=== PATIENT | female | born 1995 | race Caucasian/White ===

== ENCOUNTER → 2017-11-20 09:01 | Outpatient (CLI) | payer OTHER, SELFPAY ==
[2017-11-20 10:33] LABS: Absolute Lymphocyte Count 1.56 X10^3/ul (0.83-4.51); Absolute Neutrophil Count 3.6 X10^3/uL (2.0-7.7); Basophil# 0.02 X10^3/uL; Basophil% 0.3 % (0-1); Eosinophil# 0.07 X10^3/uL; Eosinophils% 1.2 % (0-5); Hematocrit 38.6 % (37-47); Hemoglobin 12.3 g/dl (12.0-15.0); Lymphocyte # 1.56 X10^3/ul (4.0); Lymphocyte % 27.3 % (19-41); Mean Corp Hgb Conc 31.9 g/gl (32-36); Mean Corpuscular Hgb 27.5 pg (27.0-32.0); Mean Corpuscular Volume 86.2 fL (81-99); Mean Platelet Vol. 11.2 fl (6.2-12.0); Monocyte# 0.47 X10^3/uL; Monocyte% 8.2 % (0-10); Platelet Count 195 K/mm3 (150-450); RBC Distribution Width CV 13.4 % (11.6-14.6); RBC Distribution Width SD 42.2 fl (35.1-43.9); Red Blood Count 4.48 M/mm3 (4.2-5.4); White Blood Count 5.7 K/mm3 (4.4-11.0)
[2017-11-20 10:40] LABS: POSITIVE COUNT NO; POSITIVE DIFFERENTIAL NO; POSITIVE MORPHOLOGY NO
[2017-11-20 10:53] LABS: Glucose Challenge Gest 1H 50g 115 mg/dL (70-140)
[2017-11-20 11:48] LABS: HIV - WCH Non-Reactive (Nonreactive); Rubella IgG 295.6 IU/mL
[2017-11-20 16:13] LABS: Chlamydia Trachomatis by PCR Negative (Negative); Neisserai gonorrhoeae by PCR Negative (Negative); Probe Check PASS; Sample Adequacy Control PASS; Specimen Processing Control PASS
[2017-11-21 09:23] LABS: HEPATITIS B SURFACE AG Negative (Negative)
[2017-11-22 01:13] LABS: Rapid Plasmin Reagin (RPR) NONREACTIVE (NONREACTIVE)
== END ==
PROVIDERS: Visit Provider Obstetrics & Gynecology
DX: O09.91 Supervision of high risk pregnancy, unspecified, first trimester (principal); Z3A.00 Weeks of gestation of pregnancy not specified
CPT/HCPCS: 36415; 82950; 85025; 86592; 86703; 86762; 86850; 86900; 87086; 87088; 87340; 87491; 87591

== ENCOUNTER → 2017-11-28 16:11 | Outpatient (CLI) | payer OTHER, SELFPAY ==
--- NOTE | 2017-11-28 16:12 | US_ITS ---
STUDY: FIRST TRIMESTER OBSTETRICAL ULTRASOUND REASON FOR EXAM: Female, 22 years old. Gestational size LMP: September 23, 2017 TECHNIQUE: Transvaginal PRIOR ULTRASOUND: None. FINDINGS: There is visualization of a single gestational sac in a normal intrauterine position. The mean sac diameter (MSD) measures 2.32 cm, indicating an estimated gestational age (EGA) of 7 weeks, 3 days. The gestational sac shape is within normal limits. There is a 10 x 4 mm hypoechoic area adjacent to the gestational sac possibly related to focal subchorionic blood. There is a visualized yolk sac. The yolk sac measures 3.8 mm. The placenta is non-visualized. There is visualization of a live embryo. The crown-rump length (CRL) measures 1.46 cm, indicating an estimated gestational age (EGA) of 7 weeks, 6 days. There is demonstrated cardiac activity with a heart rate of 170 bpm. The estimated gestation age (EGA) by LMP is 9 weeks, 3 days. The estimated date of delivery (DAVID) by LMP is June 25, 2018. The estimated gestation age (EGA) by US is 7 weeks, 5 days. The estimated date of delivery (DAVID) by US is July 12, 2018. The uterus measures 9.2 x 5.9 x 4.6 cm. There is no demonstrated uterine fibroid. The cervix is closed. The right ovary measures 3.0 x 2.2 x 2.0 cm. There is no right ovarian cyst. There is no visualized right adnexal mass or complex lesion. The left ovary measures 3.1 x 2.4 x 1.7 cm. There is a 1.8 x 1.4 x 1.2 cm left ovarian heterogeneous complex cystic nodule. There is no fluid in the cul de sac. US/Init OB < 14Wks US IMPRESSION: Live intrauterine at 7 weeks 5 days gestational age. Probable trace subchorionic blood. Complex left adnexal nodule. Electronically Signed: Ruddy Rice DO at 21:47 EDT Tel [phone], Service support ,
== END ==
PROVIDERS: Family Provider Family Medicine; PCP Family Medicine; Visit Provider Obstetrics & Gynecology
DX: O09.91 Supervision of high risk pregnancy, unspecified, first trimester (principal); Z3A.00 Weeks of gestation of pregnancy not specified
CPT/HCPCS: 76801

== ENCOUNTER → 2017-12-18 08:00 | Outpatient (CLI) | payer OTHER, SELFPAY ==
--- NOTE | 2017-12-18 08:00 | DT_ITS ---
This patient was seen during an EMR downtime December 16, 2017 - December 23, 2017. This patient may have a combination of paper and electronic documentation or all paper documentation. All documentation is viewable within the e-chart portion of [facility] for each patient visit.
== END ==
PROVIDERS: Family Provider Family Medicine; PCP Family Medicine; Visit Provider Nurse Practitioner Women's Health
DX: M54.9 Dorsalgia, unspecified (principal)
CPT/HCPCS: 87077; 87086; 87088; 87186

== ENCOUNTER → 2018-02-19 15:17 | Outpatient (CLI) | payer OTHER, SELFPAY ==
--- NOTE | 2018-02-19 15:19 | US_ITS ---
STUDY: SECOND AND THIRD TRIMESTER OBSTETRICAL ULTRASOUND REASON FOR EXAM: Female, 22 years old. anatomy screen LMP: TECHNIQUE: Transabdominal PRIOR ULTRASOUND: November 28, 2017 FINDINGS: There is a single intrauterine fetus. The fetus is in a cephalic presentation. There is demonstrated cardiac activity with a heart rate of 153 bpm. There is a normal amniotic fluid volume. The largest amniotic fluid pocket measures 5.9 x 7.5 cm. The amniotic fluid index (LAYO) normal. The placenta is anterior There are Grade 0 placental changes. The cervix measures 3.8 in length. The bilateral adnexal regions are normal. BIOMETRY: BPD: 4.7 cm: 20 weeks, 3 days HC: 17.7 cm: 20 weeks, 2 days AC: 15.0 cm: 20 weeks, 2 days FL: 3.3 cm: 20 weeks, 1 days CI: 0.81 FL/BPD: 0.69 FL/HC: FL/AC: 0.22 HC/AC: 1.18 age by current US: 20 weeks, 2 days. DAVID by current US: 07/12/2018. Estimated weight: 339 grams, +/- 50 grams, 80 %. . Age by LMP: 19 weeks, 4 days. DAVID by LMP: 07/07/2018. ANATOMY: Gender: Cranium: Normal lateral ventricles. Normal choroid plexus. Normal cerebellum. Normal cisterna magna. Normal face, nose and lips. Chest: Normal 4-chamber heart. Abdomen/Pelvis: Normal diaphragm. Normal stomach. Normal abdominal wall. Normal cord insertion. Normal 3 vessel cord. Normal kidneys. Normal bladder. Spine: Normal cervical spine. Normal thoracic spine. Normal lumbar spine. Normal sacrum. Extremities: Normal bilateral upper extremities. Normal bilateral lower extremities. IMPRESSION: There has been normal growth of the since the last study November 28, 2017. The fetus is currently in cephalic presentation and longitudinal lie with composite measurements averaging artifact to be equivalent to 20 weeks 2 days +/- 5 days with an expected date of delivery of 07/12/2018. By the LMP the gestational age is 19 weeks 4 days and the expected date of delivery is 07/07/2018 Electronically Signed: Harrison Carrasco, at 7:48 EDT Tel , Service support , US/OB Anatomy Scan
== END ==
PROVIDERS: Family Provider Family Medicine; PCP Family Medicine; Visit Provider Obstetrics & Gynecology
DX: O09.91 Supervision of high risk pregnancy, unspecified, first trimester (principal); Z3A.00 Weeks of gestation of pregnancy not specified
CPT/HCPCS: 76805

== ENCOUNTER → 2018-03-12 09:43 | Outpatient (CLI) | payer OTHER, SELFPAY | PROVIDERS: Family Provider Family Medicine; PCP Family Medicine; Visit Provider Obstetrics & Gynecology | DX: M25.472 Effusion, left ankle (principal) | CPT/HCPCS: 93971 ==

== ENCOUNTER → 2018-04-24 16:32 | Outpatient (CLI) | payer OTHER, SELFPAY ==
[2018-04-24 17:13] LABS: Absolute Lymphocyte Count 1.95 X10^3/ul (0.83-4.51); Absolute Neutrophil Count 7.7 X10^3/uL (2.0-7.7); Basophil# 0.01 X10^3/uL; Basophil% 0.1 % (0-1); Eosinophils% 0.9 % (0-5); Hematocrit 35.4 % (37-47); Hemoglobin 11.7 g/dl (12.0-15.0); Lymphocyte # 1.95 X10^3/ul (4.0); Lymphocyte % 18.4 % (19-41); Mean Corp Hgb Conc 33.1 g/gl (32-36); Mean Corpuscular Volume 87.8 fL (81-99); Mean Platelet Vol. 10.9 fl (6.2-12.0); Monocyte% 7.5 % (0-10); Neutrophil % 72.6 % (47-70); Platelet Count 159 K/mm3 (150-450); RBC Distribution Width CV 13.1 % (11.6-14.6); Red Blood Count 4.03 M/mm3 (4.2-5.4); White Blood Count 10.6 K/mm3 (4.4-11.0)
[2018-04-24 17:48] LABS: Glucose Challenge Gest 1H 50g 140 mg/dL (70-140)
[2018-04-24 17:50] LABS: POSITIVE COUNT NO; POSITIVE DIFFERENTIAL NO; POSITIVE MORPHOLOGY NO
== END ==
PROVIDERS: Family Provider Family Medicine; PCP Family Medicine; Referring Provider Obstetrics & Gynecology; Visit Provider Obstetrics & Gynecology
DX: O09.91 Supervision of high risk pregnancy, unspecified, first trimester (principal); Z3A.00 Weeks of gestation of pregnancy not specified
CPT/HCPCS: 36415; 82950; 85025

== ENCOUNTER → 2018-05-16 06:54 | Outpatient (CLI) | payer OTHER, SELFPAY ==
[2018-05-16 09:19] LABS: Glucose GTT-Gestational 1 Hr 172 mg/dL (<190)
[2018-05-16 09:24] LABS: Glucose GTT-Gestation. Fasting 86 mg/dL (<105)
[2018-05-16 09:45] LABS: Glucose GTT-Gestational 2 Hr 163 mg/dL (<165)
[2018-05-16 11:46] LABS: Glucose GTT-Gestational 3 Hr 84 L (<145)
== END ==
PROVIDERS: Family Provider Family Medicine; PCP Family Medicine; Referring Provider Obstetrics & Gynecology; Visit Provider Obstetrics & Gynecology
DX: O99.810 Abnormal glucose complicating pregnancy (principal); Z3A.00 Weeks of gestation of pregnancy not specified
CPT/HCPCS: 36415; 82951; 82952

== ENCOUNTER 2018-05-22 15:50 | Outpatient (CLI) | payer OTHER, SELFPAY ==
[2018-05-22 16:09] VITALS: BMI 44.7
--- NOTE | 2018-05-26 21:30 | OB.TRI.NOTE ---
- Problem List (1) Obesity affecting Status: Acute (2) Supervision of high risk in first trimester Status: Acute Comment: PRR DAVID 06/30/18 boyfriend Carl History of Present Illness Date of Service: 05/22/18 Was patient seen by the physician?: No Reason For Visit: NST History of Present Illness: nst for obesity Allergies No Known Allergies Allergy (Verified 05/22/18 16:10) NST - FHR Rate Baby A Baseline: 140 Variability:: Moderate Accelerations:: 15 x 15 Decelerations:: None NST Reactive:: Yes FHR Category:: Category I Uterine Activity:: no regular Impression/Plan obesity and high risk - weekly nsts, reactive and reassuring
== END 2018-05-22 16:45 | disposition home or self-care (01) ==
LOC: WPOUT 16:05 → WP 16:06
PROVIDERS: Referring Provider Obstetrics & Gynecology; Visit Provider Obstetrics & Gynecology
DX: O09.891 Supervision of other high risk pregnancies, first trimester (principal); O99.211 Obesity complicating pregnancy, first trimester; Z3A.00 Weeks of gestation of pregnancy not specified

== ENCOUNTER 2018-05-27 15:50 | Outpatient (CLI) | payer OTHER, SELFPAY ==
[2018-05-27 16:14] VITALS: BMI 45.2
--- NOTE | 2018-05-28 19:03 | OB.TRI.NOTE ---
- Problem List (1) Obesity affecting Status: Acute Qualifiers: (2) Supervision of high risk in first trimester Status: Acute Comment: PRR DAVID 06/30/18 boyfriend Carl History of Present Illness Date of Service: 05/27/18 Was patient seen by the physician?: No Reason For Visit: NST History of Present Illness: obesity Allergies No Known Allergies Allergy (Verified 05/27/18 16:04) NST - FHR Rate Baby A Baseline: 140 Variability:: Moderate Accelerations:: 15 x 15 Decelerations:: None NST Reactive:: Yes FHR Category:: Category I Uterine Activity:: no regular Impression/Plan obesity- reacitve nst continue weekly nsts and q 4 week growth us
== END 2018-05-27 16:40 | disposition home or self-care (01) ==
LOC: WPOUT 15:53 → WP 15:54
PROVIDERS: Referring Provider Obstetrics & Gynecology; Visit Provider Obstetrics & Gynecology
DX: O99.210 Obesity complicating pregnancy, unspecified trimester (principal); O09.90 Supervision of high risk pregnancy, unspecified, unspecified trimester; Z3A.00 Weeks of gestation of pregnancy not specified
CPT/HCPCS: 59025; 59050; 99218; G0378

== ENCOUNTER 2018-06-19 15:40 | Outpatient (CLI) | payer OTHER, SELFPAY ==
[2018-06-19 15:28] VITALS: BMI 45.6
[2018-06-19 16:01] VITALS: BMI 47.0
--- NOTE | 2018-06-19 20:26 | OB.TRI.NOTE ---
- Problem List (1) Obesity affecting Status: Acute Qualifiers: Comment: growth us after 32 weeks and weekly nsts 32 weeks on (2) Supervision of high risk in first trimester Status: Acute Comment: PRR DAVID 06/30/18 boyfriend Carl History of Present Illness Date of Service: 06/19/18 Was patient seen by the physician?: No Reason For Visit: NST History of Present Illness: obesity in weekly nst Allergies No Known Allergies Allergy (Verified 06/19/18 15:28) NST - FHR Rate Baby A Baseline: 130 Variability:: Moderate Accelerations:: 15 x 15 Decelerations:: None NST Reactive:: Yes FHR Category:: Category I Uterine Activity:: no regular Impression/Plan 23 yo obesity weekly nst fu weekly reactive today and reassuring
== END 2018-06-19 17:20 | disposition home or self-care (01) ==
LOC: WPOUT 15:44 → WP 15:45
PROVIDERS: Referring Provider Obstetrics & Gynecology; Visit Provider Obstetrics & Gynecology
DX: O99.213 Obesity complicating pregnancy, third trimester (principal); E66.9 Obesity, unspecified; Z3A.32 32 weeks gestation of pregnancy
CPT/HCPCS: 59025; 59050; 99218; G0378

== ENCOUNTER 2018-07-12 20:03 | Inpatient (IN) | payer OTHER, SELFPAY ==
[2018-07-11 15:33] VITALS: BMI 47.0
[2018-07-12 19:48] LABS: ROM Internal Control Test YES-OK TO RESULT pt. (Internal QC)
[2018-07-12 19:49] LABS: ROM Patient Test POSITIVE (Negative)
[2018-07-12] MEDS: Lactated Ringers 1,000 ML 50 ML IV ×2 (20:30→22:00)
[2018-07-12 20:41] VITALS: BMI 47.5
[2018-07-12 20:48] LABS: Hemoglobin 13.5 g/dl (12.0-15.0); Mean Corp Hgb Conc 33.8 g/gl (32-36); Mean Corpuscular Hgb 28.7 pg (27.0-32.0); Mean Corpuscular Volume 85.1 fL (81-99); Mean Platelet Vol. 10.8 fl (6.2-12.0); Platelet Count 156 K/mm3 (150-450); RBC Distribution Width CV 13.9 % (11.6-14.6); RBC Distribution Width SD 43.1 fl (35.1-43.9); Scan Indicated on CBC? Y/N NO; White Blood Count 10.2 K/mm3 (4.4-11.0)
[2018-07-12] MEDS: fentaNYL-bupivacaine (epidural) 100 ML BAG EPIDURAL (22:21)
--- NOTE | 2018-07-12 22:44 | PCM.HP.OB ---
- Problem List (1) SROM (spontaneous rupture of membranes) Status: Acute (2) Obesity affecting Status: Acute Qualifiers: Comment: growth us after 32 weeks and weekly nsts 32 weeks on (3) Abnormal glucose affecting Status: Acute Comment: normal 3 hour gtt (4) GBS (group B streptococcus) UTI complicating Status: Acute Qualifiers: Comment: treated, plan PCN in labor (5) Supervision of high risk in first trimester Status: Acute Comment: PRR DAVID 06/30/18 boyfriend Carl History Date of Admission: 07/12/18 Final DAVID: 07/12/18 Gestational age: 40 Weeks and 0 Days History of this : This is a 23 year-old, at 40 weeks gestational age presents IAL. she has had an uncomplicated . She co clear LOF this evening and then ctx started that were very painful. she denies any vb and admits good fm. Allergies No Known Allergies Allergy (Verified 07/11/18 15:33) Home Medications: Home Medications Vits [Prenatabs FA] 1 tab PO DAILY 06/19/18 Smoking Status: Never smoker Alcohol: None Number of Fetus(es): 1 Heart Tracin moderate variability reactive no decels Cat I TOCO Analysis: q2-3 History Past Pregnancies: Past Pregnancies Delivery Date Name GA/Weeks Outcome Route Weight Gender Labor Length Anesthesia Delivery Location Provider FOB Labs: Mom's Labs & Results 07/12/18 07/12/18 07/12/18 19:30 20:30 20:30 WBC 10.2 RBC 4.70 Hgb 13.5 Hct 40.0 MCV 85.1 MCH 28.7 MCHC 33.8 RDW 13.9 RDW Differential 43.1 Plt Count 156 MPV 10.8 Vag Amniotic Fld Detect POSITIVE H Blood Type A POSITIVE Antibody Screen NEGATIVE Course Did the patient receive Yes care? Labs Blood Type: A RH: POSITIVE RPR/VDRL/Syphilis Nonreactive Rubella status Immune HbSAg Negative Date Done: 11/20/17 Chlamydia Negative Gonorrhea Negative HIV/AIDS Non-Reactive Group B Strep: Positive Current Obstetrical History Gestational Diabetes No Incompetent Cervix No Infertility No IUGR No Macrosomia No Hypertension/Pre-eclampsia No Placenta Previa/Abruption No PTL/PROM No Uterine anomaly No Oligohydramnios No Polyhydramnios No Multiple gestation No Past Medical History Asthma No Diabetes No Hypertension No Heart disease No Mitral valve prolapse No Neurologic/Seizure disorder/ No Migraines Kidney disease No Liver disease No Varicosities No Clotting disorders/Hx of DVT No Thyroid Dysfunction No Other medical diseases No Psychiatric disorders No Major trauma No Abnormal PAP smear No Sleep apnea No Mammogram in the last 2 years No Social History Marital Status: SINGLE Alleged father blake hector Hx Smoking No Smoking Status Never smoker Expected Infant Delivery Method: Spontaneous Vaginal Describe any other labor & delivery plans:: Specific Issue/Plans. flu vaccine: declined. minichart given: yes. tdap vaccine: given. rhogam: NA. LARC form signed: declines. labor support person: Carl. pain management: epidural. cut cord/dad catch: maybe. : yes. PP control planned: considering mirena IUD. special requests: [] Review of Systems Constitutional: Denies: Fever, Malaise Eyes: Denies: Blurred vision, Vision Change HEENT: Denies: Head Aches, Visual Changes Cardiovascular: Denies: Chest Pain, Palpitations Respiratory: Denies: Cough, Shortness of Breath, Wheezing Gastrointestinal: Reports: Abdominal Pain. Denies: Diarrhea, Nausea, Vomiting Genitourinary: Denies: Dysuria, Hematuria Gynecological: Reports: Vaginal discharge Musculoskeletal: Denies: Joint Pain, Muscle pain Skin: Denies: Lesions, Rash Neurological: Denies: Blurred vision, Focal weakness, Headaches Psychiatric: Denies: Anxiety, Depression Endocrine: Denies: Heat/ Cold Intolerance Hematologic/ Lymphatic: Denies: Easy Bruising, Easy Bleeding Physical Exam General: Alert, Cooperative, No apparent distress HEENT: Atraumatic, Normocephalic. Negative for: Thyromegaly, Lymphadenopathy Cardiovascular: Regular rate Lungs: Normal air movement Abdomen: Soft, Non Tender, Gravid Neurological: Deep Tendon Reflexes 2+/4 and Symmetrical, Neuro grossly intact. Negative for: Clonus INTERVENTIONAL NURSE: Normal external genitalia. Negative for: Vulvar lesions Estimated gestational size: Appropriate for gestational size Presentation: Cephalic Cervix Dilation (cm): 5 Station: -1 Effacement (%): 60 Assessment/Plan All Active Problems (Last Reviewed 07/11/18 @ 15:33 by Lucie Gross) SROM (spontaneous rupture of membranes) (Acute) Obesity affecting (Acute) Abnormal glucose affecting (Acute) GBS (group B streptococcus) UTI complicating (Acute) Supervision of high risk in first trimester (Acute) BMI 40.0-44.9, adult (Resolved) This is a 23 year-old, , at 40 weeks gestational age presents IAL Patient presents IAL, plan expectant management for , pitocin PRN. Pain management: plans epidural. GBS positive plan IV PCN. Management of any complications: none I have reviewed the [facility] and made any clinically relevant updates.
[2018-07-12] MEDS: Ondansetron 4 MG/2 ML Vial IV (23:22)
[2018-07-13] VITALS (23 sets, daily range): BP systolic 128–156; BP diastolic 67–93; PULSE 93–146; RESP 16–18; TEMP 36.3–37.2; O2SAT 92–100
--- NOTE | 2018-07-13 00:55 | PCM.OB.VAG ---
- Problem List (1) SROM (spontaneous rupture of membranes) Status: Acute (2) Obesity affecting Status: Acute Qualifiers: Comment: growth us after 32 weeks and weekly nsts 32 weeks on (3) Abnormal glucose affecting Status: Acute Comment: normal 3 hour gtt (4) GBS (group B streptococcus) UTI complicating Status: Acute Qualifiers: Comment: treated, plan PCN in labor (5) Supervision of high risk in first trimester Status: Acute Comment: PRR DAVID 06/30/18 boyfriend Carl Vaginal Delivery Maternal Presentation: Active Labor Amniotic Membrane Rupture Type: Spontaneous at home Amniotic Fluid Description: Clear Final DAVID: 07/12/18 Gestational age: 40 Weeks and 1 Days Surgery/ Procedure Performed: Spontaneous Vaginal Delivery Type of Anesthesia: Epidural Placental Delivery Description: Spontaneous Placenta Disposition: [facility] Cord Vessel Description: 3 Vessels Infant A gender: Male Medications given after delivery: IV Pitocin
[2018-07-13] MEDS: fentaNYL-bupivacaine (epidural) 100 ML BAG EPIDURAL (01:30)
[2018-07-13] MEDS: Acetaminophen 325 MG Tablet PO (02:46)
[2018-07-13] MEDS: Lactated Ringers 1,000 ML 50 ML IV (02:46)
[2018-07-13] MEDS: Oxytocin 30 units/NS 500 ml 30 UNITS/500 ML IV.SOLN 334 UNITS IV (05:50)
[2018-07-13] MEDS: Oxytocin 30 units/NS 500 ml 30 UNITS/500 ML IV.SOLN 167 UNITS IV (06:30)
--- NOTE | 2018-07-13 06:31 | PCM.PN.BLA ---
Progress Note patient began pushing and initially made significant progress, and then had poor maternal pushing effort due to inadequate epidural which was redosed twice. she continued pushing and then developed a fever that was persistent and there was tachycardia so ampicillin and gentamicin were started. she continued pushing and after over 4 hours of pushing it was discussed with the patient choosing either a vasuum assisted delivery or proceeding with a primary . the infants head was in the +3 station and the maternal pelvis was initially felt to be fairly adequate, so after discussing the risks the patient requested attempted vacuum.double setup will be done in case of necessary for delivery.
--- NOTE | 2018-07-13 06:35 | PN_ITS ---
Progress Note patient began pushing and initially made significant progress, and then had poor maternal pushing effort due to inadequate epidural which was redosed twice. she continued pushing and then developed a fever that was persistent and there was tachycardia so ampicillin and gentamicin were started. she continued pushing and after over 4 hours of pushing it was discussed with the patient choosing either a vasuum assisted delivery or proceeding with a primary . the infants head was in the +3 station and the maternal pelvis was in itially felt to be fairly adequate, so after discussing the risks the patient requested attempted vacuum.double setup will be done in case of necessary for delivery.
--- NOTE | 2018-07-13 06:35 | PCM.OPRPT ---
Problem List (1) SROM (spontaneous rupture of membranes) Status: Acute (2) Obesity affecting Status: Acute Qualifiers: Comment: growth us after 32 weeks and weekly nsts 32 weeks on (3) Abnormal glucose affecting Status: Acute Comment: normal 3 hour gtt (4) GBS (group B streptococcus) UTI complicating Status: Acute Qualifiers: Comment: treated, plan PCN in labor (5) Supervision of high risk in first trimester Status: Acute Comment: PRR DAVID 06/30/18 boyfrienmichelle Henry (6) Arrest of descent, delivered, current hospitalization Status: Acute (7) Failed vacuum extraction delivery Status: Acute (8) Cephalopelvic disproportion Status: Acute Report of Operation Date of Procedure: 07/13/18 Pre-Operative Diagnosis: Arrest of descent, cephalopelvic disproportion,. Suspected triple I Post-Operative Diagnosis: Same Surgery/Procedure Performed:: Primary low transverse for failed vacuum extraction Description of Surgical Findings:: in occiput posterior position normal uterus tubes and ovaries parliamentary counsel: Randal Olson Type of Anesthesia:: Epidural, General, Spinal Special Medications: Ampicillin gentamicin and clindamycin Specimen's removed: Infant Drains: Alvares Estimated Blood Loss (mL): 800 Fluids Replaced: cryStyloid Description of Procedure: Patient presented in active labor and after 5 hours patient was complete and she began pushing and pushed for over 4-1/2 hours. Multiple re-doses and it was felt that there was some maternal pushing effort that was poor and the pelvis was initially felt to be fairly adequate so the patient was counseled regarding risks and benefits of attempted vacuum extraction prior to . Patient requested proceeding with vacuum extraction first. Vacuum was applied and the +3 station with the infant in the LOP presentation and a pull with 1 contraction was made in some descent was noted however progressive poles with the next 2 contractions resulted in 2 pop offs and the decision was made to proceed with primary for suspected CPD arrested descent . spinal anesthesia was placed and then once patient was laying down she reported difficulty breathing and it was decided for her to undergo general anesthesia due to concern for combination spinal epidural side effects. Patient was prepped and draped in the normal sterile fashion. Pfannenstiel skin incision was made with the scalpel and carried through to the underlying layer of fascia with the scalpel. Fascia was nicked in the midline and the incision extended laterally. The peritoneum was entered digitally. The incision was stretched and a low transverse uterine incision was made with the scalpel. The 's head was delivered atraumatically followed by the anterior and posterior shoulders without complication the rest of the delivered. The cord was clamped and cut and the infant was handed off to awaiting nurse. The placenta was delivered spontaneously immediately following and was noted to be intact and have a three-vessel cord. The uterus was exteriorized cleared of all clots and debris, and the incision was closed in a double layer closure using #1 Monocryl. The uterus was returned to the maternal abdomen and gutters were cleared of all clots and debris. The ovaries and fallopian tubes were noted to be within normal limits. The peritoneum was closed with 3-0 Monocryl in a running fashion. Fascia was closed with 0 PDS in a running fashion. the skin was closed with 3-0 Monocryl in a subcuticular fashion. Mepilex dressing were applied without complication. Patient was taken to recovery in stable condition. Grafts/Implants Used: none - Complications none - Admit VTE Documentation VTE Present on Admission: No VTE Mechan Device Prophylaxis: SCD's VTE Pharm Prophylaxis ordered?: No
--- NOTE | 2018-07-13 06:42 | OP.PCM_ITS ---
Problem List (1) SROM (spontaneous rupture of membranes) Status: Acute (2) Obesity affecting Status: Acute Qualifiers: Comment: growth us after 32 weeks and weekly nsts 32 weeks on (3) Abnormal glucose affecting Status: Acute Comment: normal 3 hour gtt (4) GBS (group B streptococcus) UTI complicating Status: Acute Qualifiers: Comment: treated, plan PCN in labor (5) Supervision of high risk in first trimester Status: Acute Comment: PRR DAVID 06/30/18 boyfrienmichelle Henry (6) Arrest of descent, delivered, current hospitalization Status: Acute (7) Failed vacuum extraction delivery Status: Acute (8) Cephalopelvic disproportion Status: Acute Report of Operation Date of Procedure: 07/13/18 Pre-Operative Diagnosis: Arrest of descent, cephalopelvic disproportion,. Suspected triple I Post-Operative Diagnosis: Same Surgery/Procedure Performed:: Primary low transverse for failed vacuum extraction Description of Surgical Findings:: in occiput posterior position normal uterus tubes and ovaries farm equipment service technician: Randal Olson Type of Anesthesia:: Epidural, General, Spinal Special Medications: Ampicillin gentamicin and clindamycin Specimen's removed: Infant Drains: Alvares Estimated Blood Loss (mL): 800 Fluids Replaced: cryStyloid Description of Procedure: Patient presented in active labor and after 5 hours patient was complete and she began pushing and pushed for over 4-1/2 hours. Multiple re-doses and it was felt that there was some maternal pushing effort that was poor and the pelvis was initially felt to be fairly adequate so the patient was counseled regarding risks and benefits of attempted vacuum extraction prior to . Patient requested proceeding with vacuum extraction first. Vacuum was applied and the +3 station with the infant in the LOP presentation and a pull with 1 contraction was made in some descent was noted however progressive poles with the next 2 contractions resulted in 2 pop offs and the decision was made to proceed with primary for suspected CPD arrested descent . spinal anesthesia was placed and then once patient was laying down she reported difficulty breathing a nd it was decided for her to undergo general anesthesia due to concern for combination spinal epidural side effects. Patient was prepped and draped in the normal sterile fashion. Pfannenstiel skin incision was made with the scalpel and carried through to the underlying layer of fascia with the scalpel. Fascia was nicked in the midline and the incision extended laterally. The peritoneum was entered digitally. The incision was stretched and a low transverse uterine incision was made with the scalpel. The 's head was delivered atraumatically followed by the anterior and posterior shoulders without complication the rest of the delivered. The cord was clamped and cut and the infant was handed off to awaiting nurse. The placenta was delivered spontaneously immediately following and was noted to be intact and have a three- vessel cord. The uterus was exteriorized cleared of all clots and debris, and the incision was closed in a double layer closure using #1 Monocryl. The uterus was returned to the maternal abdomen and gutters were cleared of all clots and debris. The ovaries and fallopian tubes were noted to be within normal limits. The peritoneum was closed with 3-0 Monocryl in a running fashion. Fascia was closed with 0 PDS in a running fashion. the skin was closed with 3-0 Monocryl in a subcuticular fashion. Mepilex dressing were applied without complication. Patient was taken to recovery in stable condition. Grafts/Implants Used: none - Complications none - Admit VTE Documentation VTE Present on Admission: No VTE Mechan Device Prophylaxis: SCD's VTE Pharm Prophylaxis ordered?: No
[2018-07-13] MEDS: Lactated Ringers 1,000 ML 150 ML IV (06:44)
--- NOTE | 2018-07-13 09:23 | PLAC_PTH ---
PATIENT: RAUL CUNNINGHAM LOC: [facility] U#:[id number] AGE/SX: 23/F ROOM: WP008 RE07/12/[address]: Dr. Charisma Juarez MD : 1995 BED: 1 DIS: 07/15/2018 SPEC #: [id number] RECD: 07/13/18 10:17 STATUS: FANTA RESuman #: [id number] TRISH: 07/13/18 09:[address]: Charisma Juarez DEPT: SURGICAL PATHOLOGY RECD BY: Nanda Serrano ENTERED: 07/14/18 14:44 SP TYPE: PLACENTA OTHR DR: Dr. Valerio Rubi MD Tissues: Placenta, NOS Procedures: Surgery Specimen Level V HEADER OPERATION: section PRE-OP DIAGNOSIS: 40 2/7 weeks, maternal fever and tachycardia TISSUE SUBMITTED: Placenta MICROSCOPIC DIAGNOSIS Placenta: Placental disc - third trimester placenta (578 gm). - Focal acute vasculitis of subamniotic blood vessels. - Focal area of peripheral infarction and calcification (2 cm in greatest dimension). - Focal increased perivillous and intervillous fibrin deposition. Membranes - acute chorioamnionitis. Umbilical cord - three blood vessels and no pathologic diagnosis. SJ:mauro 07/17/18 MICROSCOPIC DESCRIPTION Slides are reviewed. GROSS DESCRIPTION SPECIMEN: PLACENTA / CLINICAL INFORMATION: A. Weight: 4.26 kg B. Gestational Age: 40 weeks C. Sex: Male PLACENTAL WEIGHT (POST FIXATION): 578 gm PLACENTAL DIMENSIONS: 17 x 19 x 3 cm PLACENTAL SHAPE: Usual ovoid PLACENTAL WEIGHT FOR GESTATIONAL AGE: Within 10-99th percentile MEMBRANES - Present A. Insertion: Marginal B. Site of rupture from edge: The membranes are disrupted and distance of rupture cannot be assessed. C. Color of membrane: Isabel-mesa D. Abnormalities: None UMBILICAL CORD - Present A. Color: Isabel-mesa B. Insertion: Central C. Length: 50 cm D. Diameter: 1.4 cm E. Number of vessels: Three F. Abnormalities: Focal increased spiraling is noted. PLACENTAL DISC - Present A. Color of surface: Isabel-mesa B. surface abnormalities: surface shows submembranous blood clots. C. Maternal cotyledons: Intact with minimal tears D. Attached retro placental clot: No clot E. Cut surface: Dark red and spongy F. Lesions: Sections reveal a isabel indurated area in the peripheral portion of the placenta measuring 2 x 1.5 x 1 cm. G. Separate clot: Multiple blood clots measuring in aggregate 9 x 9 x 3 cm and weighing 50 gm. SECTIONS SUBMITTED: 1. Membrane roll 2. Cord, maternal end 3. Cord, end 4. Placental disc, and maternal surfaces, lesion 5. Placental disc, and maternal surfaces 6. Placental disc, and maternal surfaces SJ:mauro 07/16/18 TC:2 CPT: 20915
[2018-07-13] MEDS: Ketorolac 30 MG/ML Syringe IV ×2 (12:42→18:15)
[2018-07-13] MEDS: Enoxaparin 40 MG/0.4 ML Syringe SC (14:38)
[2018-07-13] MEDS: Prenatal Vits Tablet 1 TABLET PO (14:38)
[2018-07-13] MEDS: Lactated Ringers 1,000 ML 100 ML IV (16:59)
[2018-07-14 02:00] VITALS: PULSE 97; RESP 16; O2SAT 100
[2018-07-14 03:35] VITALS: BP 121/80; PULSE 109; RESP 16; TEMP 36.4; O2SAT 99
[2018-07-14] MEDS: Lactated Ringers 1,000 ML 100 ML IV (03:39)
--- NOTE | 2018-07-14 03:42 | DCINST_ITS ---
Discharge Diet: No Restrictions Discharge Activity: May Not Drive - for 2 weeks, May not drive while taking narcotic pain medications., May Shower, May Take a Tub Bath - in 7 days May resume sexual activity in: 4-6 weeks Lifting Restrictions: 20 pounds Additional Activity Instructions:: Nothing in the vagina for 4-6 weeks. You may return to work/school in 6 weeks. Call your doctor if your incision/area has: Continuous Slow Oozing, Sudden Increased Bleeding, Increased Pain/ Swelling, Increased Redness, Foul Smelling Discharge Call your doctor if you observe: Fever of 101 or Higher, Using more than one pad per hour - for 2 hours Suture Line Care: Avoid Pulling/Pushing, Avoid Pinching/Bending Cleanse incision/area with: Keep Dressing Clean & Dry Additional Instructions: If you experience any of the following, contact your healthcare provider. * Bleeding that soaks a pad every hour for 2 hours * Fever 100.4 or higher * Unrelieved incision or abdominal pain * Swelling, redness, discharge or bleeding from your incision or episiotomy site * Your incision begins to separate * Problems urinating (including inability to urinate or burning while urinating). * Visual changes * Severe headache * Flu-like symptoms * Pain or redness in one of both of your breasts * Pain, warmth, tenderness or swelling in your legs, especially the calf area * Frequent nausea and vomiting * Symptoms of depression or anxiety If you experience any of the following, call 911 or go to the nearest Emergency Room. * Chest pain * Problems breathing * Seizure activity * Partial or complete paralysis of a body part, slurred speech, weakness or drooping of the face, or a sudden inability to walk or hold your balance Allergies/Adverse Reactions: Allergies No Known Allergies Allergy (Verified 07/11/18 15:33) Medications to take at Discharge Vits [Prenatabs FA] 1 tab PO DAILY 06/19/18 Naproxen [Naprosyn] 250 - 500 mg PO Q8H PRN PRN #30 tablet 07/14/18 Oxycodone HCl/Acetaminophen [Percocet 5-325] 1 - 2 tablet PO Q4H PRN PRN 7 Days #28 tablet 07/14/18 The following prescriptions were given: Oxycodone HCl/Acetaminophen [Percocet 5-325] 1 - 2 tablet PO Q4H PRN PRN 7 Days #28 tablet PRN Reason: Moderate-Severe pain Naproxen [Naprosyn] 250 - 500 mg PO Q8H PRN PRN #30 tablet PRN Reason: MILD PAIN Follow-Up: Call to make an appointment with your doctor for an incision check in 1-2 weeks. You will also need a 6 week post- follow up appointment. Test results from this visit will be discussed in further detail at your follow- up appointment, if applicable. Please Follow Up With: Charisma Juarez MD - Call to make an appointment for an incision check in 1-2 [phone] When: You will need a post- check in 6 weeks. Primary Care Physician: Valerio Rubi MD [Primary Care Provider] -
[2018-07-14 04:27] LABS: Hematocrit 33.3 % (37-47); Hemoglobin 11.1 g/dl (12.0-15.0); Mean Corp Hgb Conc 33.3 g/gl (32-36); Mean Corpuscular Hgb 29.1 pg (27.0-32.0); Mean Corpuscular Volume 87.2 fL (81-99); Platelet Count 150 K/mm3 (150-450); RBC Distribution Width CV 14.2 % (11.6-14.6); RBC Distribution Width SD 43.8 fl (35.1-43.9); Red Blood Count 3.82 M/mm3 (4.2-5.4); White Blood Count 12.3 K/mm3 (4.4-11.0)
[2018-07-14 04:30] LABS: Scan Indicated on CBC? Y/N NO
[2018-07-14 05:51] VITALS: PULSE 109; RESP 18; O2SAT 100
[2018-07-14] MEDS: Ketorolac 30 MG/ML Syringe IV ×5 (06:15→23:48)
[2018-07-14] MEDS: 0.9% Saline Lock 10 ML Syringe IV ×4 (06:15→18:03)
--- NOTE | 2018-07-14 07:56 | PCM.PN.OB ---
Patient Problems: Active and Suspected Problems (Last Reviewed 07/11/18 @ 15:33 by Lucie Gross) SROM (spontaneous rupture of membranes) (Acute) Arrest of descent, delivered, current hospitalization (Acute) Failed vacuum extraction delivery (Acute) Cephalopelvic disproportion (Acute) Subjective: No CP, SOB. Some difficulty with . Pain controlled - Physical Exam General: Alert, Oriented x3 Abdomen: Soft, Non-Distended, - - FF below U. Dressing dry and intact Vital Signs Temp Pulse Resp BP Pulse Ox 97.6 F L 109 H 18 121/80 H 100 07/14/18 03:35 07/14/18 05:51 07/14/18 05:51 07/14/18 03:35 07/14/18 05:51 Oxygen Delivery Method Room Air Weight: 285 lb 15.033 oz Body Mass Index (BMI) 47.5 Intake and Output for Last 24 Hours 07/12/18 07/13/18 07/14/18 23:59 23:59 23:59 Intake Total 2134 / 2134 1000 / 1000 Output Total 2275 / 2275 1999 Balance -141 / -141 -1000 / -1000 Laboratory Tests Past 24 Hrs 07/14/18 04:05 WBC 12.3 H RBC 3.82 L Hgb 11.1 L Hct 33.3 L MCV 87.2 MCH 29.1 MCHC 33.3 RDW 14.2 RDW Differential 43.8 Plt Count 150 MPV 11.0 Medical Necessity - Tobacco Use Smoking Status: Never smoker Assessment/Plan All Active Problems (Last Reviewed 07/11/18 @ 15:33 by Lucie Gross) SROM (spontaneous rupture of membranes) (Acute) Arrest of descent, delivered, current hospitalization (Acute) Failed vacuum extraction delivery (Acute) Cephalopelvic disproportion (Acute) Obesity affecting (Acute) Abnormal glucose affecting (Acute) GBS (group B streptococcus) UTI complicating (Acute) Supervision of high risk in first trimester (Acute) BMI 40.0-44.9, adult (Resolved) LTPCS POD#1: Routine care. Will have consult for
[2018-07-14 09:00] VITALS: BP 129/81; PULSE 92; RESP 20; TEMP 36.1
[2018-07-14] MEDS: Prenatal Vits Tablet 1 TABLET PO (11:27)
[2018-07-14 13:29] VITALS: BP 139/82; PULSE 108; RESP 18; TEMP 35.9
[2018-07-14] MEDS: oxyCODONE 5 MG Tablet PO (13:57)
[2018-07-14] MEDS: Enoxaparin 40 MG/0.4 ML Syringe SC (18:03)
[2018-07-14 20:00] VITALS: BP 131/72; PULSE 106; RESP 16; TEMP 36.4; O2SAT 100
[2018-07-14] MEDS: Acetaminophen 500 MG Tablet 1000 MG PO (20:07)
[2018-07-15 03:00] VITALS: BP 126/91; PULSE 103; RESP 16; TEMP 36.6; O2SAT 97
[2018-07-15] MEDS: oxyCODONE 5 MG Tablet PO (03:15)
[2018-07-15] MEDS: Ketorolac 30 MG/ML Syringe IV ×2 (06:08→12:18)
[2018-07-15 08:30] VITALS: BP 132/84; PULSE 103; RESP 20; TEMP 36.2
--- NOTE | 2018-07-15 09:30 | NURSING ---
[id number] Dr Brink notified that pt complains of ALLEN 1/10 when laying flat and 3/10 when upright. Also complains of neck soreness.Pt states that ALLEN has improved since yesterday. Encouraged increasing fluid and caffeine intake.
--- NOTE | 2018-07-15 11:27 | PCM.PN.OB ---
Patient Problems: Active and Suspected Problems (Last Reviewed 07/11/18 @ 15:33 by Lucie Gross) SROM (spontaneous rupture of membranes) (Acute) Arrest of descent, delivered, current hospitalization (Acute) Failed vacuum extraction delivery (Acute) Cephalopelvic disproportion (Acute) Subjective: doing well n ocomplaints - Physical Exam General: Alert, Oriented x3 Abdomen: Soft, Non Tender, - - C/D/I Vital Signs Temp Pulse Resp BP Pulse Ox 98 F 103 H 16 126/91 H 97 07/15/18 03:00 07/15/18 03:00 07/15/18 03:00 07/15/18 03:00 07/15/18 03:00 Oxygen Delivery Method Room Air Weight: 285 lb 15.033 oz Body Mass Index (BMI) 47.5 Intake and Output for Last 24 Hours 07/13/18 07/14/18 07/15/18 23:59 23:59 23:59 Intake Total 2134 / 2134 1000 / 1000 Output Total 2275 / 2275 2900 / 2900 Balance -141 / -141 -1900 / -1900 Medical Necessity - Tobacco Use Smoking Status: Never smoker Assessment/Plan All Active Problems (Last Reviewed 07/11/18 @ 15:33 by Lucie Gross) SROM (spontaneous rupture of membranes) (Acute) Arrest of descent, delivered, current hospitalization (Acute) Failed vacuum extraction delivery (Acute) Cephalopelvic disproportion (Acute) Obesity affecting (Acute) Abnormal glucose affecting (Acute) GBS (group B streptococcus) UTI complicating (Acute) Supervision of high risk in first trimester (Acute) BMI 40.0-44.9, adult (Resolved) s/p LTCS PPD # 2 1. routine post care 2. breast feeding- support given 3. rh positive 4. rubella immune
[2018-07-15] MEDS: Prenatal Vits Tablet 1 TABLET PO (12:18)
[2018-07-15] MEDS: 0.9% Saline Lock 10 ML Syringe IV (12:18)
[2018-07-15 14:09] VITALS: BP 135/79; PULSE 108; RESP 16; TEMP 36.7; O2SAT 99
== END 2018-07-15 14:50 | disposition home or self-care (01) | DRG 786 ==
LOC: WPOUT 20:03 → WP 20:10
PROVIDERS: Admitting Provider Obstetrics & Gynecology; Family Provider Family Medicine; PCP Family Medicine; Referring Provider Obstetrics & Gynecology; Visit Provider Obstetrics & Gynecology
DX: O62.1 Secondary uterine inertia (principal); O41.1030 Infection of amniotic sac and membranes, unspecified, third trimester, not applicable or unspecified; O76 Abnormality in fetal heart rate and rhythm complicating labor and delivery; O42.02 Full-term premature rupture of membranes, onset of labor within 24 hours of rupture; O66.5 Attempted application of vacuum extractor and forceps; O99.814 Abnormal glucose complicating childbirth; O99.214 Obesity complicating childbirth; E66.01 Morbid (severe) obesity due to excess calories; O99.824 Streptococcus B carrier state complicating childbirth; Z3A.40 40 weeks gestation of pregnancy; Z37.0 Single live birth
CPT/HCPCS: 59050; 84112; 85027; 86850; 86900; 88307; 99218; J7120; A4216; G0378; J2405

== ENCOUNTER → 2020-02-15 14:47 | Outpatient (CLI) | payer MEDICAID, SELFPAY ==
[2020-02-15 14:15] VITALS: BMI 47.5
[2020-02-15 15:08] LABS: Absolute Lymphocyte Count 2.52 X10^3/uL (0.83-4.51); Absolute Neutrophil Count 6.2 X10^3/uL (2.0-7.7); Basophil# 0.06 X10^3/uL; Basophil% 0.6 % (0-1); Eosinophil# 0.13 X10^3/uL; Eosinophils% 1.3 % (0-5); Lymphocyte # 2.52 X10^3/ul (4.0); Lymphocyte % 26.1 % (19-41); Mean Corp Hgb Conc 32.5 g/dL (32-36); Mean Corpuscular Hgb 28.4 pg (27.0-32.0); Mean Corpuscular Volume 87.5 fL (81-99); Mean Platelet Vol. 10.9 fl (6.2-12.0); Monocyte# 0.68 X10^3/uL; NRBC Flagged by Analyzer 0 % (0-5); Neutrophil # 6.24 X10^3/uL (2.7-7.7); Neutrophil % 64.6 % (47-70); Platelet Count 248 K/mm3 (150-450); RBC Distribution Width CV 12.8 % (11.6-14.6); RBC Distribution Width SD 40.7 fl (35.1-43.9); Red Blood Count 4.57 M/mm3 (4.2-5.4); White Blood Count 9.7 K/mm3 (4.4-11.0)
[2020-02-15 15:28] LABS: Glucose Challenge Gest 1H 50g 117 mg/dL (70-140)
[2020-02-15 16:13] LABS: HIV - WCH Non-Reactive (Nonreactive); Hepatitis B Surface Antigen Non-Reactive (Nonreactive); Hepatitis C Antibody Non-Reactive (Nonreactive); Rubella IgG 259.2 IU/mL
[2020-02-15 18:07] LABS: Amphetamine Urine VISTA NEGATIVE (<1000 ng/mL); Barbiturate Urine VISTA NEGATIVE (< 200 ng/mL); Benzodiazepine Urine VISTA NEGATIVE (< 200 ng/mL); Cocaine Urine VISTA NEGATIVE (< 300 ng/mL); Ecstacy Urine VISTA NEGATIVE (< 500 ng/mL); Methadone Urine VISTA NEGATIVE (< 300 ng/mL); PCP Urine VISTA NEGATIVE (< 25 ng/mL); THC Urine VISTA NEGATIVE (< 50 ng/mL); Vista UDS pH Range 6
[2020-02-15 20:01] LABS: Chlamydia Trachomatis by PCR Negative (Negative); Neisserai gonorrhoeae by PCR Negative (Negative); Probe Check PASS; Sample Adequacy Control PASS; Specimen Processing Control PASS
[2020-02-18 02:04] LABS: Rapid Plasmin Reagin (RPR) NONREACTIVE (NONREACTIVE)
== END ==
PROVIDERS: PCP Nurse Practitioner Family; Referring Provider Obstetrics & Gynecology; Visit Provider Obstetrics & Gynecology
DX: O09.90 Supervision of high risk pregnancy, unspecified, unspecified trimester (principal); Z3A.00 Weeks of gestation of pregnancy not specified
CPT/HCPCS: 36415; 80307; 82950; 85025; 86592; 86703; 86762; 86803; 86850; 86900; 86901; 87086; 87088; 87340; 87491; 87591

== ENCOUNTER → 2020-02-17 | Outpatient (CLI) | payer MEDICAID, SELFPAY ==
[2020-02-15 14:15] VITALS: BMI 47.5
[2020-02-22 13:51] LABS: HPV Reflexed? NOT INDICATED
== END | disposition home or self-care (01) ==
LOC: LABSPEC 16:30
PROVIDERS: PCP Nurse Practitioner Family; Referring Provider Obstetrics & Gynecology; Visit Provider Obstetrics & Gynecology
DX: Z12.4 Encounter for screening for malignant neoplasm of cervix (principal)
CPT/HCPCS: 88175; G0145

== ENCOUNTER → 2020-03-01 16:07 | Outpatient (CLI) | payer MEDICAID, SELFPAY ==
[2020-02-15 14:15] VITALS: BMI 47.5
[2020-03-01 17:15] LABS: NATERA MAILED SPECIMEN
== END ==
PROVIDERS: PCP Nurse Practitioner Family; Referring Provider Obstetrics & Gynecology; Visit Provider Obstetrics & Gynecology
DX: Z34.81 Encounter for supervision of other normal pregnancy, first trimester (principal); Z31.430 Encounter of female for testing for genetic disease carrier status for procreative management
CPT/HCPCS: 36415

== ENCOUNTER → 2020-04-29 | Outpatient (CLI) | payer MEDICAID, SELFPAY ==
[2020-04-29 11:54] VITALS: BMI 49.4
== END | disposition home or self-care (01) ==
LOC: LABSPEC 12:50
PROVIDERS: PCP Nurse Practitioner Family; Referring Provider Obstetrics & Gynecology; Visit Provider Obstetrics & Gynecology
DX: N39.0 Urinary tract infection, site not specified (principal)
CPT/HCPCS: 87086; 87088

== ENCOUNTER → 2020-06-17 15:50 | Outpatient (CLI) | payer MEDICAID, SELFPAY ==
[2020-06-06 16:03] VITALS: BMI 47.0
[2020-06-17 16:41] LABS: Absolute Lymphocyte Count 2.12 X10^3/uL (0.83-4.51); Absolute Neutrophil Count 8.1 X10^3/uL (2.0-7.7); Basophil# 0.04 X10^3/uL; Basophil% 0.4 % (0-1); Eosinophil# 0.05 X10^3/uL; Eosinophils% 0.5 % (0-5); Hemoglobin 11.6 g/dL (12.0-15.0); Lymphocyte # 2.12 X10^3/ul (4.0); Lymphocyte % 19.3 % (19-41); Mean Corp Hgb Conc 32.2 g/dL (32-36); Mean Corpuscular Hgb 28.3 pg (27.0-32.0); Mean Corpuscular Volume 87.8 fL (81-99); Mean Platelet Vol. 10.9 fl (6.2-12.0); Monocyte# 0.64 X10^3/uL; Monocyte% 5.8 % (0-10); NRBC Flagged by Analyzer 0 % (0-5); Neutrophil # 8.08 X10^3/uL (2.7-7.7); Neutrophil % 73.6 % (47-70); Platelet Count 266 K/mm3 (150-450); RBC Distribution Width CV 13.4 % (11.6-14.6); RBC Distribution Width SD 42.4 fl (35.1-43.9)
[2020-06-17 16:51] LABS: Glucose Challenge Gest 1H 50g 113 mg/dL (70-140)
== END ==
PROVIDERS: PCP Nurse Practitioner Family; Referring Provider Obstetrics & Gynecology; Visit Provider Obstetrics & Gynecology
DX: Z34.90 Encounter for supervision of normal pregnancy, unspecified, unspecified trimester (principal); Z13.1 Encounter for screening for diabetes mellitus
CPT/HCPCS: 36415; 82950; 85025

== ENCOUNTER → 2020-07-25 16:50 | Outpatient (CLI) | payer MEDICAID, SELFPAY ==
[2020-06-27 15:31] VITALS: BMI 46.6
[2020-07-13 16:05] VITALS: BMI 46.6
--- NOTE | 2020-07-25 16:52 | US_ITS ---
STUDY: SECOND AND THIRD TRIMESTER OBSTETRICAL ULTRASOUND - LIMITED REASON FOR EXAM: Female, 25 years old GROWTH LMP: 12/14/2019 PRIOR ULTRASOUND: 02/19/2018 TECHNIQUE: Transabdominal TECHNICAL QUALITY: Adequate. FINDINGS: There is a single intrauterine fetus. The fetus is in a cephalic presentation. There is demonstrated cardiac activity with a heart rate of 147 bpm. There is a normal amniotic fluid volume. The largest amniotic fluid pocket measures 7.5 cm. The amniotic fluid index (LAYO) is 11.6 cm. The placenta is anterior in location and is not low lying. There are Grade 1 placental changes. The cervix measures 3.1 cm in length. BIOMETRY: BPD: 7.8 cm: 31 weeks, 1 days HC: 30.4 cm: 33 weeks, 5 days AC: 28.4 cm: 32 weeks, 3 days FL: 5.9 cm: 30 weeks, 5 days Age by LMP: 32 weeks, 0 days. DAVID by LMP: September 19 2020. age by current US: 32 weeks, 3 days. DAVID by current US: 09/16/2020. Estimated weight: 1845 grams, +/- 277 grams, 34 percentile. US/OB Limited With Biometrics IMPRESSION: 32 week 3 day intrauterine Electronically Signed: Alphonse Martinez MD at 22:20 EST , Service support ,
== END ==
PROVIDERS: PCP Nurse Practitioner Family; Referring Provider Nurse Practitioner Women's Health; Visit Provider Nurse Practitioner Women's Health
DX: O09.90 Supervision of high risk pregnancy, unspecified, unspecified trimester (principal); Z3A.00 Weeks of gestation of pregnancy not specified
CPT/HCPCS: 76816

== ENCOUNTER → 2020-08-22 16:54 | Outpatient (CLI) | payer MEDICAID, SELFPAY ==
[2020-06-27 15:31] VITALS: BMI 46.6
[2020-08-18 15:40] VITALS: BMI 46.4
--- NOTE | 2020-08-22 16:55 | US_ITS ---
STUDY: SECOND AND THIRD TRIMESTER OBSTETRICAL ULTRASOUND - LIMITED REASON FOR EXAM: Female, 25 years old GROWTH LMP: 12/14/2019. PRIOR ULTRASOUND: None. TECHNIQUE: Transabdominal TECHNICAL QUALITY: 07/25/2020. FINDINGS: There is a single intrauterine fetus. The fetus is in a cephalic presentation. There is demonstrated cardiac activity with a heart rate of 173 bpm. There is a normal amniotic fluid volume. The largest amniotic fluid pocket measures 6.9 cm. The amniotic fluid index (LAYO) is 13.4 cm. The placenta is anterior in location and is not low lying. There are Grade 1 placental changes. The cervix measures 3.1 cm cm in length. The cervix is closed. BIOMETRY: BPD: 8.68 cm: 35 weeks, 0 days HC: 32.22 cm: 36 weeks, 2 days AC: 32.56 cm: 36 weeks, 3 days FL: 6.95 cm: 35 weeks, 4 days Age by LMP: 36 weeks, 0 days. DAVID by LMP: 09/19/2020. DAVID by prior US: 09/16/2020. age by current US: 35 weeks, 3 days. DAVID by current US: 09/23/2020. Estimated weight: 2856 grams, +/- 428 grams, 55 percentile. Exam is dedicated to evaluate anatomy and therefore is limited in this regard. US/OB Limited With Biometrics IMPRESSION: Single intrauterine gestation with ultrasound age of 35 weeks and 3 days and estimated date of delivery of 09/23/2020. VERTEX presentation. Anterior placenta with no previa. Normal amniotic fluid. Normal cardiac activity. Electronically Signed: Angie Perez MD at 2:41 EST , Service support ,
== END ==
PROVIDERS: PCP Nurse Practitioner Family; Referring Provider Nurse Practitioner Women's Health; Visit Provider Nurse Practitioner Women's Health
DX: O09.90 Supervision of high risk pregnancy, unspecified, unspecified trimester (principal); Z3A.00 Weeks of gestation of pregnancy not specified
CPT/HCPCS: 76816

== ENCOUNTER → 2020-08-25 | Outpatient (CLI) | payer MEDICAID, SELFPAY ==
[2020-08-25 15:42] VITALS: BMI 46.6
== END | disposition home or self-care (01) ==
LOC: LABSPEC 16:59
PROVIDERS: PCP Nurse Practitioner Family; Visit Provider Obstetrics & Gynecology
DX: O09.90 Supervision of high risk pregnancy, unspecified, unspecified trimester (principal); Z3A.00 Weeks of gestation of pregnancy not specified
CPT/HCPCS: 87081

== ENCOUNTER 2020-09-02 10:55 | Inpatient (IN) | payer MEDICAID, SELFPAY ==
[2020-06-27 15:31] VITALS: BMI 46.6
[2020-09-02] VITALS (18 sets, daily range): BP systolic 86–116; BP diastolic 35–81; PULSE 72–101; RESP 14–19; TEMP 36.1–37; O2SAT 97–99; BMI 46.7; BMI 46.5
[2020-09-02] MEDS: Lactated Ringers 1,000 ML 999 ML IV (11:15)
[2020-09-02 11:34] LABS: Absolute Neutrophil Count 7.3 X10^3/uL (2.0-7.7); Basophil# 0.03 X10^3/uL; Basophil% 0.3 % (0-1); Eosinophil# 0.03 X10^3/uL; Eosinophils% 0.3 % (0-5); Hematocrit 37.6 % (37-47); Hemoglobin 11.9 g/dL (12.0-15.0); Lymphocyte % 16.9 % (19-41); Mean Corp Hgb Conc 31.6 g/dL (32-36); Mean Corpuscular Volume 82.1 fL (81-99); Mean Platelet Vol. 10.7 fl (6.2-12.0); Monocyte# 0.54 X10^3/uL; Monocyte% 5.7 % (0-10); NRBC Flagged by Analyzer 0 % (0-5); Neutrophil # 7.26 X10^3/uL (2.7-7.7); Neutrophil % 76.5 % (47-70); Platelet Count 226 K/mm3 (150-450); RBC Distribution Width CV 13.8 % (11.6-14.6); RBC Distribution Width SD 40.7 fl (35.1-43.9); Red Blood Count 4.58 M/mm3 (4.2-5.4); White Blood Count 9.5 K/mm3 (4.4-11.0)
[2020-09-02] MEDS: Acetaminophen 500 MG Tablet 1000 MG PO ×3 (11:41→23:27)
[2020-09-02] MEDS: Sodium Citrate/Citric Acid 30 ML UDC PO (12:03)
--- NOTE | 2020-09-02 12:19 | PCM.HPOB.BLA ---
- Problem List (1) 34 weeks gestation of Status: Acute Comment: electronic covid test ordered (scheduled for 09/08/20 at 1400) (2) H/O section Status: Acute Comment: repeat at 39 weeks with SM, scheduled 09/12/20 @ 7:30 (3) History of tetanus, diphtheria, and acellular pertussis booster vaccination (Tdap) Status: Acute Comment: 06/27/20 (4) Obesity affecting Status: Acute Qualifiers: Comment: BMI 47 nl GCT given at [facility], encouraged healthy weight gain, plan growth US q 4 weeks and weekly NST after 32 weeks. NL growth 07/25. NL growth 08/23 (5) Status: Acute Qualifiers: Comment: NIPT low risk, carrier neg. NL anatomy (6) Supervision of high risk , antepartum Status: Acute Comment: PRR DAVID 09/19/2020 girl Arin PC: Stephan Spouse: Jorge (7) contraception Status: Acute Comment: Desires BTL at time of . T19 signed 07/13. History and Physical Date of Admission: 09/02/20 Intake Vital Signs 09/02/20 Height 5 ft 5 in 09/02/20 Weight: 281 lb 09/02/20 BP 130/88 H Intake Visit Reasons: ROM Supervisor [employer] Required: No Is patient in pain?: No Allergies oxycodone Adverse Reaction (Intermediate, Verified 09/02/20 09:32) rash Medications multivitamin no.47-iron fum 27 mg-folate no.1 1 mg-dha 300 mg capsule cap PO 02/15/20 [History Confirmed 09/02/20] ondansetron 4 mg disintegrating tablet 4 mg PO Q4H PRN #60 tab 03/08/20 [Rx Confirmed 09/02/20] Last Menstral Period: 12/14/19 Zika: Zika virus screening: Negative : No PFSH PFSH Surgical History H/O section (Acute) Family History Father Diabetes Grandmother Cancer brain Social History (Updated 09/02/20 @ 10:[address] Paige Jacobs MD) alcohol intake: never substance use type: does not use caffeine: Yes what type of physical activity do you participate in: walking seatbelt use: always do you feel safe at home: Yes additional social history: Xavier AGUAYO Patient works at [employer] Pregancy History 2 Elective abortions Hx Para 1 Spontaneous abortions Hx # Term Pregnancies Ectopic pregnancies Hx # Pregnancies Multiple births # of living children Past Pregnancies Del. Date Name GA/Weeks Outcome Route Bth Weight Infant Gen [facility] 07/13/18 Stephan 40 live - full term 9lbs 6oz Male spinal [facility] SM Delivery Date: 07/13/18 Failed vacuum, arrested descent, CPD Aliya,[place] HPI ROM: Details: RAUL CUNNINGHAM is a 25 year old who presents for routine OB visit. OB Visit DAVID Calculator Estimated Delivery Date Method Current WG Current Estimate 09/19/20 LMP (Certain) 37w 4d Other Estimates 09/19/20 Ultrasound #1 37w 4d Expected Delivery Route/Plan RLTCS with SM at 39 weeks Specific Issue/Plans flu vaccine: given tdap vaccine: given rhogam: na LARC form signed: yes Problem list reviewed and updated with the most current plan of care details and appropriate orders placed. Relevant counseling for the gestational age provided. Continue routine care and follow up unless otherwise noted in visit notes/problem list details Initial Weight: 283 lb Date EGA Weight BP Urine Prot Glucose FHR FuHt Pres Dilation Effaced St Visit Note 02/15/20 9w 0d 283 lb (+0 oz) 126/70 165 SM CRL 2.7 cm cons with LMP 03/16/20 13w 2d 282 lb 6 oz (-10 oz) 124/74 155 GP - no VB, DFM, contractions. Anatomy scan ordered. 04/11/20 17w 0d 282 lb (-16 oz) 132/78 Negative Negative 156 MH:No VB, LOF. Anatomy US 04/25. Nausea improved. Flu vaccine. 05/09/20 21w 0d 283 lb (+0 oz) 110/80 Negative Negative 150 SM- no vb lof good fm no regular ctx. 06/06/20 25w 0d 282 lb 6 oz (-10 oz) 132/82 Negative Negative 145 25 GP - no LOF, VB DFM, ctx. GCT next visit. 12/14/20 28w 0d 280 lb 6 oz (-2 lb 10 oz) 118/76 Trace Negative 161 29 MH_No VB, LOF. Good FM. Nl 28 wk labs. Tdap, Larc and 32 wk growth US ordered. 07/13/20 30w 2d 280 lb 2 oz (-2 lb 14 oz) 124/80 Negative Negative 145 31 GP - no LOF, VB, DFM, ctx. Desires tubal ligation at time of . T19 signed. 07/28/20 32w 3d 281 lb (-2 lb) 122/84 Negative Negative MH-No VB, LOF. Good FM. Reactive NST 08/04/20 33w 3d 281 lb (-2 lb) 110/60 Trace Negative MH NST only reactive 08/25/20 36w 3d 280 lb 2 oz (-2 lb 14 oz) 110/80 Negative Negative 140 SM- no vb lof good fm no regular ctx 09/02/20 37w 4d 281 lb (-2 lb) 130/88 140 Cephalic 0 GP - Presents with LOF. Grossly ruptured on exam for clear fluid. Has not eaten since this am. Sent to labor and delivery. ACOG First Trimester First Trimester: Desire for , Alcohol, Tobacco Cessation, Illicit/Recreational Drug/Substance Use, Intimate Partner Violence, Barriers to care, Unstable Housing, Communication Barriers, Environmental/Work Hazards, Anticipated Course of Care, Toxoplasmosis Precations, Use of Any medications, Sexual activity, Exercise, Dental Care, Sauna/Hot tub use, Seat Belt use, Childbirth classes/Hospital facilities, , Travel, Indications for US and Screening for Aneuploidy Second Trimester Second Trimester: Signs and Symptoms of Labor, Selecting a care provider, Reproductive Life Planning, Care Planning, Depression/Anxiety and Intimate Partner Violence; discussed Tobacco Cessation Diagnostics Diagnostics Diagnostics Glucose 1 Hr 50 gm 113 mg/dL (70-140) 06/17/20 Hgb 11.6 g/dL (12.0-15.0) L 06/17/20 Hct 36.0 % (37-47) L 06/17/20 Details: HIV: Urine Culture: Sequential Screen: NIPT Screen: ROS Const Reports system reviewed and no additional complaints, except as docu Eyes Reports system reviewed and no additional complaints, except as docu ENT Reports system reviewed and no additional complaints, except as docu Card Reports system reviewed and no additional complaints, except as docu Resp Reports system reviewed and no additional complaints, except as docu GI Reports system reviewed and no additional complaints, except as docu Reports system reviewed and no additional complaints, except as docu, Denies abnormal vaginal bleeding, Denies painful urination, Denies pelvic pain, Denies vaginal discharge, Denies vaginal odor, Denies vaginal itching Musc Reports system reviewed and no additional complaints, except as docu Skin/Breast Reports system reviewed and no additional complaints, except as docu Neuro Yes system reviewed and no additional complaints, except as docu Psych Reports system reviewed and no additional complaints, except as docu Endo Reports system reviewed and no additional complaints, except as docu Exam Const General: cooperative, healthy appearing, comfortable, no acute distress, well developed, well groomed Nutritional Appearance: average body habitus, well nourished Orientation: alert, awake, oriented x3 HENMT Head: normal to inspection, normocephalic, atraumatic Eyes Pupils: PERRL, accommodation normal Resp Effort & Inspection: normal respiratory effort, able to speak in complete sentences, symmetric chest movement Cardio Rate: regular rate GI Palpation: soft, no guarding, no masses, nontender Skin General: no rashes or lesions noted, elasticity normal, turgor normal Neuro General: alert, awake, oriented x3 Cranial Nerves: CN's II-XI intact bilaterally, sense of smell intact, PERRL, accommodation normal, EOM intact bilaterally Speech: speech normal Gait: normal gait Psych Appearance: grossly normal, well kempt Mental Status: mental status grossly normal Mood: congruent mood Affect: normal affect Speech and Movement: speech and movement normal Attitude: cooperative Thought Process: normal Thought Content: normal Judgment: judgment good Assessment & Plan Problems 1. 34 weeks gestation of Z3A.34 electronic covid test ordered (scheduled for 09/08/20 at 1400) 2. History of tetanus, diphtheria, and acellular pertussis booster vaccination (Tdap) Z92.29 06/27/20 3. contraception Desires BTL at time of . T19 signed 07/13. 4. H/O section Z98.891 repeat at 39 weeks with , scheduled 09/12/20 @ 7:30 5. Obesity affecting in third trimester O99.213 BMI 47 nl GCT given at [facility], encouraged healthy weight gain, plan growth US q 4 weeks and weekly NST after 32 weeks. NL growth 07/25. NL growth 08/23 6. Supervision of high risk , antepartum O09.90 PRR DAVID 09/19/2020 girl Arin PC: Stephan Spouse: Jorge 7. 37 weeks gestation of Z3A.37 NIPT low risk, carrier neg. NL anatomy Plan 25yo at 37 weeks who presents with ROM Hx - plan RLTCS and BTL with SM at noon today. Has not eaten today. Plan Ancef 3g Pain relief per anesthesia COVID testing not yet done GBS negative Coding Level of Care Code Off vis,est,level 3 Diagnoses 34 weeks gestation of Z3A.34 History of tetanus, diphtheria, and acellular pertussis booster vaccination (Tdap) Z92.29 contraception H/O section Z98.891 Obesity affecting in third trimester O99.213 ??Trimester: third trimester Supervision of high risk , antepartum O09.90 37 weeks gestation of Z3A.37 ??Weeks of gestation: 37 weeks UPDATE- I have seen the patient and performed any clinically relevant updates to the history and physical exam. Charisma Juarez MD
--- NOTE | 2020-09-02 12:23 | PCM.OPRPT ---
Problem List (1) 34 weeks gestation of Status: Acute Comment: electronic covid test ordered (scheduled for 09/08/20 at 1400) (2) H/O section Status: Acute Comment: repeat at 39 weeks with SM, scheduled 09/12/20 @ 7:30 (3) History of tetanus, diphtheria, and acellular pertussis booster vaccination (Tdap) Status: Acute Comment: 06/27/20 (4) Obesity affecting Status: Acute Qualifiers: Comment: BMI 47 nl GCT given at [facility], encouraged healthy weight gain, plan growth US q 4 weeks and weekly NST after 32 weeks. NL growth 07/25. NL growth 08/23 (5) Status: Acute Qualifiers: Comment: NIPT low risk, carrier neg. NL anatomy (6) Supervision of high risk , antepartum Status: Acute Comment: PRR DAVID 09/19/2020 girl Arin PC: Stephan Spouse: Jorge (7) contraception Status: Acute Comment: Desires BTL at time of . T19 signed 07/13. Delivery Classification: AYALA Final DAVID: 09/19/20 Gestational age: 37 Weeks and 4 Days video tape duplicator: Randal Olson Type of Anesthesia:: Spinal Special Medications: none Implants Used: none Date of Procedure: 09/02/20 Pre-Operative Diagnosis: PROM previous desired sterilization Post-Operative Diagnosis: same Description of Procedure: patient came in ruptured at 37 weeks. Spinal anesthesia was placed without difficulty. Alvares catheter was placed. The patient was placed in the dorsal supine position with leftward tilt. Patient was prepped and draped in the normal sterile fashion. Pfannenstiel skin incision was made with the scalpel and carried through to the underlying layer of fascia with the scalpel. Fascia was nicked in the midline and the incision extended laterally. The rectus bellies were dissected off superiorly and inferiorly with out complication both sharply and bluntly. The peritoneum was entered digitally. The incision was stretched and a low transverse uterine incision was made with the scalpel. The infant's head was delivered atraumatically followed by the anterior and posterior shoulders without complication the rest of the infant delivered. The cord was clamped and cut and the was handed off to awaiting nurse. The placenta was delivered spontaneously immediately following and was noted to be intact and have a three-vessel cord. The uterus was exteriorized cleared of all clots and debris, and the incision was closed in a single layer closure using #1 Monocryl. Patient had desired sterilization and was counseled preoperatively regarding irreversibility and permanency. Therefore bilateral fallopian tubes were elevated and transected across using a LigaSure device starting proximally to distally without complication the entire fallopian tubes were removed. The ovaries and fallopian tubes were noted to be within normal limits. The uterus was returned to the maternal abdomen and gutters were cleared of all clots and debris. wu placed over incision for hemostasis. The peritoneum was closed with 3-0 Monocryl in a running fashion. Gloves were changed prior to fascial closure. Fascia was closed with 0 PDS in a running fashion. Subcutaneous tissue was copiously irrigated and the skin was closed with 3-0 Monocryl in a subcuticular fashion. Mepilex dressing was applied without complication. Patient was taken to recovery in stable condition. Amniotic Membrane Rupture Type: Spontaneous Amniotic Fluid Description: Clear Placenta Disposition: [facility] Drain: Alvares to straight drain Fluids Replaced: crystalloid Cord Entanglement: None Cord Vessel Description: 3 Vessels Esitmated Blood Loss (ml): 800 Infant Gender: Female Delayed cord clamping: Yes Antibiotic Given: Ancef 3 grams IV x1 Pt instructed on risks of surgery: Bleeding, Anesthesia Risks, Infection, Permanency, Injury to surrounding structure(s) including bowel and bladder Multi Select Codes - Urinary/Genital Urinary/Genital CPT Codes: 33096 C/S+TL, 49744 delivery+PP Care([facility])
--- NOTE | 2020-09-02 12:41 | FALS_PTH ---
PATIENT: RAUL CUNNINGHAM LOC: WP U#:[id number] AGE/SX: ROOM: WP009 RE09/02/[address]: Dr. Charisma Juarez MD : 1995 BED: 1 DIS: 09/04/2020 SPEC #: [id number] RECD: 09/02/20 17:08 STATUS: FANTA RESuman #: [id number] TRISH: 09/02/20 12:[address]: Charisma Juarez DEPT: SURGICAL PATHOLOGY RECD BY: Claire Good ENTERED: 09/05/20 08:12 SP TYPE: FALL TUBES OTHR DR: Felipe Garrett, WARD-C Tissues: Fallopian tube Procedures: Surgery Specimen Level II HEADER OPERATION: Tubal ligation PRE-OP DIAGNOSIS: Sterilization TISSUE SUBMITTED: Bilateral fallopian tubes MICROSCOPIC DIAGNOSIS Right and left fallopian tubes, bilateral salpingectomies: Two complete segments of fallopian tubes with no pathologic change. AM:mauro 09/06/2020 MICROSCOPIC DESCRIPTION Slides are reviewed. GROSS DESCRIPTION Received in fixative is one container labeled with the patient's name and designated bilateral fallopian tubes. The specimen consists of bilateral fallopian tubes including fimbrial ends measuring 4 cm in length and 0.6 cm in diameter and 6 cm in length and 0.6 cm in diameter. The fallopian tubes are not identified as right or left. Sections reveal unremarkable cut surfaces. Delivery Helper sections are submitted in two cassettes with each cassette containing one fallopian tube. / OSCAR:mauro 09/05/20 TC:4 CPT: 38966 x2
[2020-09-02] MEDS: Oxytocin 30 units/NS 500 ml 30 UNITS/500 ML IV.SOLN 167 UNITS IV (13:30)
--- NOTE | 2020-09-02 15:41 | DCINST_ITS ---
Discharge Diet: No Restrictions Discharge Activity: May Not Drive - for 2 weeks, May not drive while taking narcotic pain medications., May Shower, May Take a Tub Bath - in 7 days May resume sexual activity in: 4-6 weeks Lifting Restrictions: 20 pounds Additional Activity Instructions:: Nothing in the vagina for 4-6 weeks. You may return to work/school in 6 weeks. Call your doctor if your incision/area has: Continuous Slow Oozing, Sudden Increased Bleeding, Increased Pain/ Swelling, Increased Redness, Foul Smelling Discharge Call your doctor if you observe: Fever of 101 or Higher, Using more than one pad per hour - for 2 hours Suture Line Care: Avoid Pulling/Pushing, Avoid Pinching/Bending Cleanse incision/area with: Keep Dressing Clean & Dry Additional Instructions: If you experience any of the following, contact your healthcare provider. * Bleeding that soaks a pad every hour for 2 hours * Fever 100.4 or higher * Unrelieved incision or abdominal pain * Swelling, redness, discharge or bleeding from your incision or episiotomy site * Your incision begins to separate * Problems urinating (including inability to urinate or burning while urinating). * Visual changes * Severe headache * Flu-like symptoms * Pain or redness in one of both of your breasts * Pain, warmth, tenderness or swelling in your legs, especially the calf area * Frequent nausea and vomiting * Symptoms of depression or anxiety If you experience any of the following, call 911 or go to the nearest Emergency Room. * Chest pain * Problems breathing * Seizure activity * Partial or complete paralysis of a body part, slurred speech, weakness or drooping of the face, or a sudden inability to walk or hold your balance Allergies/Adverse Reactions: Allergies oxycodone Adverse Reaction (Intermediate, Verified 09/02/20 11:10) rash Medications to take at Discharge multivitamin no.47-iron fum 27 mg-folate no.1 1 mg-dha 300 mg capsule 2 gum PO DAILY 02/15/20 Hydrocodone/Acetaminophen [Hydrocodon-Acetaminophen 5-325] 1 each PO 4X/DAY PRN PRN 5 Days #15 tablet 09/02/20 Naproxen [Naprosyn] 500 mg PO BID PRN PRN #30 tab 09/02/20 The following prescriptions were given: Hydrocodone/Acetaminophen [Hydrocodon-Acetaminophen 5-325] 1 each PO 4X/DAY PRN PRN 5 Days #15 tablet PRN Reason: Pain Score 4-5 Transmission Status: Sent to [facility] Naproxen [Naprosyn] 500 mg PO BID PRN PRN #30 tab PRN Reason: Pain Transmission Status: Pending to [facility] Follow-Up: Call to make an appointment with your doctor for an incision check in 1-2 weeks. You will also need a 6 week post- follow up appointment. Test results from this visit will be discussed in further detail at your follow- up appointment, if applicable. Please Follow Up With: Charisma Juarez MD - Call to make an appointment for an incision check in 1-2 [phone] When: You will need a post- check in 6 weeks. Primary Care Physician: Felipe Garrett NP, POLICE DISPATCHER-C [Primary Care Provider] -
[2020-09-02 16:15] LABS: Pathology Specimen OB SEE PATHOLOGY REPORT
[2020-09-02] MEDS: Lactated Ringers 1,000 ML 100 ML IV (16:28)
[2020-09-02] MEDS: Ketorolac 30 MG/ML Syringe IV ×2 (18:21→23:27)
[2020-09-03] VITALS (10 sets, daily range): BP systolic 101–124; BP diastolic 57–71; PULSE 81–99; RESP 16–18; TEMP 36.4–36.9; O2SAT 97–100
[2020-09-03] MEDS: Enoxaparin 40 MG/0.4 ML Syringe SC ×2 (01:06→12:35)
[2020-09-03] MEDS: Ketorolac 30 MG/ML Syringe IV ×2 (05:46→12:35)
[2020-09-03] MEDS: 0.9% Saline Lock 10 ML Syringe IV (05:47)
[2020-09-03] MEDS: Acetaminophen 500 MG Tablet 1000 MG PO ×4 (05:47→23:44)
[2020-09-03 06:02] LABS: Hematocrit 31.1 % (37-47); Hemoglobin 9.9 g/dL (12.0-15.0); Mean Corp Hgb Conc 31.8 g/dL (32-36); Mean Corpuscular Hgb 26.6 pg (27.0-32.0); Mean Corpuscular Volume 83.6 fL (81-99); Mean Platelet Vol. 10.7 fl (6.2-12.0); Platelet Count 186 K/mm3 (150-450); RBC Distribution Width SD 42.7 fl (35.1-43.9); Red Blood Count 3.72 M/mm3 (4.2-5.4); White Blood Count 8.3 K/mm3 (4.4-11.0)
--- NOTE | 2020-09-03 06:16 | PN.OBGYN_ITS ---
Patient Problems: Active and Suspected Problems (Last Updated 09/02/20 @ 15:54 by Lenore Hill) History of tetanus, diphtheria, and acellular pertussis booster vaccination (Tdap) (Acute) 06/27/20 contraception (Acute) Desires BTL at time of . T19 signed 07/13. Subjective: Patient doing well without complaints. Tolerating PO. Ambulating and voiding without difficulty. Breast feeding well. Denies chest pain, shortness of breath, calf pain/swelling, fevers, chills, lightheadedness. Objective: Laboratory Tests 09/03/20 09/02/20 09/02/20 Range/Units 05:55 11:20 11:20 WBC 8.3 9.5 (4.4-11.0) K/mm3 RBC 3.72 L 4.58 (4.2-5.4) M/mm3 Hgb 9.9 L 11.9 L (12.0-15.0) g/dL Hct 31.1 L 37.6 (37-47) % MCV 83.6 82.1 (81-99) fL MCH 26.6 L 26.0 L (27.0-32.0) pg MCHC 31.8 L 31.6 L (32-36) g/dL RDW Std Deviation 42.7 40.7 (35.1-43.9) fl RDW Coeff of Damaris 14.0 13.8 (11.6-14.6) % Plt Count 186 226 (150-450) K/mm3 MPV 10.7 10.7 (6.2-12.0) fl Immature Gran % (Auto) 0.300 (0.0-0.9) % Neut % (Auto) 76.5 H (47-70) % Lymph % (Auto) 16.9 L (19-41) % [place] % (Auto) 5.7 (0-10) % Eos % (Auto) 0.3 (0-5) % Baso % (Auto) 0.3 (0-1) % Absolute Neuts (auto) 7.3 (2.0-7.7) X10^3/uL Absolute Lymphs (auto) 1.60 (0.83-4.51) X10^3/uL Nucleated RBC % 0 (0-5) % Blood Type A POSITIVE Antibody Screen NEGATIVE - Physical Exam Vitals/I&O's: Vital Signs Temp Pulse Resp BP Pulse Ox 97.9 F 94 16 101/57 L 98 09/03/20 03:50 09/03/20 05:45 09/03/20 05:45 09/03/20 03:50 09/03/20 05:45 Oxygen Delivery Method Room Air Weight: 280 lb Body Mass Index (BMI) 46.5 Intake and Output for Last 24 Hours 09/01/20 09/02/20 09/03/20 23:59 23:59 23:59 Intake Total 3201.67 / 3201.67 Output Total 400 / 900 500 / 500 Balance 2801.67 / 2301.67 -500 / -500 General: Alert, Oriented x3, Cooperative, No apparent distress, Well developed, Well nourished HEENT: Atraumatic, PERRLA, EOMI, Normocephalic Oral: Moist Mucosa Neck: Supple, No JVD Lungs: Normal air movement Cardiovascular: Regular rate Abdomen: Soft, Non Tender, - - dressing c/d/i, fundus firm Extremities: No edema, No Calf Tenderness Neurological: Cranial nerves II-XII grossly intact, Neuro grossly intact Psych/Mental Status: Normal Affect, Appropriate Laboratory Results 09/02/20 11:20: WBC 9.5, RBC 4.58, Hgb 11.9 L, Hct 37.6, MCV 82.1, MCH 26.0 L, MCHC 31.6 L, RDW Std Deviation 40.7, RDW Coeff of Damaris 13.8, Plt Count 226, MPV 10.7, Immature Gran % (Auto) 0.300, Neut % (Auto) 76.5 H, Lymph % (Auto) 16.9 L, [place] % (Auto) 5.7, Eos % (Auto) 0.3, Baso % (Auto) 0.3, Absolute Neuts (auto) 7.3, Absolute Lymphs (auto) 1.60, Nucleated RBC % 0 09/02/20 11:20: Blood Type A POSITIVE, Antibody Screen NEGATIVE 09/03/20 05:55: WBC 8.3, RBC 3.72 L, Hgb 9.9 L, Hct 31.1 L, MCV 83.6, MCH 26.6 L , MCHC 31.8 L, RDW Std Deviation 42.7, RDW Coeff of Damaris 14.0, Plt Count 186, MPV 10.7 Current Medications Acetaminophen (Acetaminophen 500 Mg Tablet) 1,000 mg PO Q6 [facility] Last Admin: 09/03/20 05:47 Dose: 1,000 mg Documented by: Hydrocodone Bitart/Acetaminophen (Hydrocodone Bitartrate/Apap 5/325 Tablet) 1 tablet PO Q4H PRN PRN PRN Reason: Pain Score 4-10 Bisacodyl (Bisacodyl 10 Mg Suppository) 10 mg RECTAL UD PRN PRN Reason: If no BM Diphenhydramine HCl (Diphenhydramine 25 Mg Capsule) 25 mg PO Q6H PRN PRN PRN Reason: ITCHING Stop: 09/03/20 13:26 Enoxaparin Sodium (Enoxaparin 40 Mg/0.4 Ml Syringe) 40 mg SC BID@0100,1300 [facility] Last Admin: 09/03/20 01:06 Dose: 40 mg Documented by: Hydrocortisone (Hydrocortisone 2.5% Crm) 1 applic TOPICAL TID PRN PRN; Protocol PRN Reason: Discomfort Ketorolac Tromethamine (Ketorolac 30 Mg/Ml Syringe) 30 mg IV Q6H [facility] Stop: 09/03/20 12:31 Last Admin: 09/03/20 05:46 Dose: 30 mg Documented by: Methylergonovine Maleate (Methylergonovine 0.2 Mg/Ml Ampul) 0.2 mg IM X1 PRN PRN Reason: Uterine Atony Nalbuphine HCl (Nalbuphine 10 Mg/Ml Ampul) 5 mg IV Q3H PRN PRN PRN Reason: ITCHING Stop: 09/03/20 13:26 Naloxone HCl (Naloxone 0.4 Mg/Ml Syringe) 0.02 mg IV Q1M PRN PRN Reason: RR <10 and pt unresponsive Naproxen (Naproxen 250 Mg Tablet) 500 mg PO Q8H [place] Ondansetron HCl (Ondansetron 4 Mg/2 Ml Vial) 4 mg IV Q4H PRN PRN PRN Reason: Nausea Multivit/Folic Acid/Iron ( Vits Tablet) 1 tablet PO DAILY@1200 [place] Prochlorperazine Edisylate (Prochlorperazine 10 Mg/2 Ml Vial) 10 mg IV Q6H PRN PRN PRN Reason: NAUSEA Senna/Docusate Sodium (Senna/Docusate Sodium 1 Tablet) 0 tablet PO DAILY [place] Simethicone (Simethicone 80 Mg Tablet) 80 mg PO PCHS PRN PRN Reason: Indigestion/stomach pain Sodium Chloride (0.9% Saline Lock 10 Ml Syringe) 5 - 15 ml IV UD PRN PRN Reason: SALINE FLUSH Last Admin: 09/03/20 05:47 Dose: 10 ml Documented by: Medical Necessity - Tobacco Use Smoking Status: Never smoker Assessment/Plan All Active Problems (Last Updated 09/02/20 @ 15:54 by Lenore Hill) Sterilization (Acute ~09/02/20) History of tetanus, diphtheria, and acellular pertussis booster vaccination (Tdap) (Acute) contraception (Acute) 34 weeks gestation of (Resolved) H/O section (Resolved) Obesity affecting (Resolved) (Resolved) Supervision of high risk , antepartum (Resolved) Abnormal glucose affecting (Resolved) Arrest of descent, delivered, current hospitalization (Resolved) BMI 40.0-44.9, adult (Resolved) Cephalopelvic disproportion (Resolved) Failed vacuum extraction delivery (Resolved) GBS (group B streptococcus) UTI complicating (Resolved) Obesity affecting (Resolved) SROM (spontaneous rupture of membranes) (Resolved) Supervision of high risk in first trimester (Resolved) s/p LTCS PPD # 1 1. routine post care 2. breast feeding- support given 3. rh positive 4. rubella immune
[2020-09-03] MEDS: Senna/Docusate Sodium 1 Tablet PO (10:16)
[2020-09-03] MEDS: Prenatal Vits Tablet 1 TABLET PO (12:34)
--- NOTE | 2020-09-03 13:24 | CASEMGMT ---
Social Work Assessment Labor and Delivery Unit Date/Time of referral: 09/03/20, 8:24am Referred by: Dr. Villalobos Date/Time of intervention: 09/03/20, 1:00pm Reason for Referral: Pt triggered PHQ-9(scored a 12) History obtained from: PAULA Household composition: PAULA Frazier, son who is 2 and now daughter Lizbet MITCHELL and FOGrupo have been together since 2016 Parent/Guardian status: Parents share custody of children Medical history: MOB--history of anxiety and depression, depression after of son. Baby Lizbet: Born 09/02/20, 1:15pm, 3.31kg, Apgars 8 and 9 at 1 and 5 minutes. Educational history: PAULA has associates degree in applied sciences Financial concerns: None. PAULA states works and plans to return to work after 3 months, children will go to day care Infant supplies: They have all supplies including diapers, crib, car seat, formula, clothing, crib Childcare/caregivers: MOB, FOB, MOB's parents Transportation: They have a vehicle Programs/Agencies involved: J[employer], WIC. WIC referred them to [facility] as per (he came in at the end of the assessment), he states has been getting texts from [facility] Children Services/Legal issues: None Mental Health Substance Abuse: No issues for either PAULA or FOB. Mental Health History: PAULA cadena has had some depression prior to the of her son, struggled with depression after the of her son. PAULA experiencing depressing symptoms at present. PAULA cadena has never been in counseling, never been on meds, has just powered through. PAULA states ALISSA has anxiety. PHQ-9: Pt scored a 12 with nursing. SW reviewed w/MOB and he confirmed the answers to be accurate, that she struggles having little interest in doing things, sleep issues, appetite issues, having little energy, and trouble concentrating(answered all several days). MOB answered for feeling down, depressed or hopeless, feeling bad about yourself, and moving slower or faster than usual--answered more than half the days. We spoke specifically about the answer to thoughts that you would be better off , or of hurting yourself in some way, to which she answered several days. PAULA became tearful, states sometimes she wonders if she would be better off , when things get stressful for her. She states she has not thought about harming herself or killing herself. Pt states she felt like this after her first child was born at times, said she thought about getting in her car and wrecking it. Pt never got in the car and drove recklessly however. Pt states she has not felt this way in a couple of years. SW asked again if she is suicidal, pt denies being suicidal at this time, denies having any kind of plan at this time. She does acknowledge that she is feeling depressed however. Support systems: FOB, MOB's parents Depression and Anxiety/Shake Baby Safe Sleeping: SW reviewed resources for all of these and gave to MOB and FOB Assessment: SW met w/MOB, and then MOB and FOB together. MOB was when SW came in, RN came in to take baby to the nursery for testing. MOB does acknowledge that she has depression, though has never sought treatment--counseling or taken medications for it. Pt states she has felt down in the past but after the of her son she struggled with . She still did not seek any treatment however. She states her recognized she was having a tough time but she still did not seek help, and eventually started feeling better. She acknowledges she has been feeling more down the last few months. SW reviewed warning signs with both MOB and FOB of and encouraged MOB to seek help, and speak to physician about medication if needed. SW gave MOB a list of mental health providers in [facility], and pointed out [facility], as they have the 24 hour hotline. MOB states understanding. Plan: Home at discharge with baby, resources given for mental health counseling. No further needs anticipated. GEOVANY Hendricks
[2020-09-03] MEDS: Naproxen 250 MG Tablet 500 MG PO (21:36)
[2020-09-04] MEDS: Enoxaparin 40 MG/0.4 ML Syringe SC (03:29)
[2020-09-04 03:30] VITALS: BP 119/70; PULSE 86; RESP 18; TEMP 36.1
[2020-09-04] MEDS: Naproxen 250 MG Tablet 500 MG PO (05:36)
[2020-09-04] MEDS: Acetaminophen 500 MG Tablet 1000 MG PO (06:38)
[2020-09-04 08:16] VITALS: BP 105/73; PULSE 81; RESP 16; TEMP 36.6
[2020-09-04] MEDS: Senna/Docusate Sodium 1 Tablet PO (09:05)
--- NOTE | 2020-09-04 10:02 | PCM.PN.OB ---
Patient Problems: Active and Suspected Problems (Last Updated 09/02/20 @ 15:54 by Lenore Hill) History of tetanus, diphtheria, and acellular pertussis booster vaccination (Tdap) (Acute) 06/27/20 contraception (Acute) Desires BTL at time of . T19 signed 07/13. Subjective: Patient doing well without complaints. Tolerating PO. Ambulating and voiding without difficulty. Breast feeding well. Denies chest pain, shortness of breath, calf pain/swelling, fevers, chills, lightheadedness. Objective: Laboratory Tests 09/03/20 09/02/20 09/02/20 Range/Units 05:55 11:20 11:20 WBC 8.3 9.5 (4.4-11.0) K/mm3 RBC 3.72 L 4.58 (4.2-5.4) M/mm3 Hgb 9.9 L 11.9 L (12.0-15.0) g/dL Hct 31.1 L 37.6 (37-47) % MCV 83.6 82.1 (81-99) fL MCH 26.6 L 26.0 L (27.0-32.0) pg MCHC 31.8 L 31.6 L (32-36) g/dL RDW Std Deviation 42.7 40.7 (35.1-43.9) fl RDW Coeff of Damaris 14.0 13.8 (11.6-14.6) % Plt Count 186 226 (150-450) K/mm3 MPV 10.7 10.7 (6.2-12.0) fl Immature Gran % (Auto) 0.300 (0.0-0.9) % Neut % (Auto) 76.5 H (47-70) % Lymph % (Auto) 16.9 L (19-41) % [place] % (Auto) 5.7 (0-10) % Eos % (Auto) 0.3 (0-5) % Baso % (Auto) 0.3 (0-1) % Absolute Neuts (auto) 7.3 (2.0-7.7) X10^3/uL Absolute Lymphs (auto) 1.60 (0.83-4.51) X10^3/uL Nucleated RBC % 0 (0-5) % Blood Type A POSITIVE Antibody Screen NEGATIVE - Physical Exam Vitals/I&O's: Vital Signs Temp Pulse Resp BP Pulse Ox 97.8 F 81 16 105/73 98 09/04/20 08:16 09/04/20 08:16 09/04/20 08:16 09/04/20 08:16 09/03/20 15:53 Oxygen Delivery Method Room Air Weight: 280 lb Body Mass Index (BMI) 46.5 Intake and Output for Last 24 Hours 09/02/20 09/03/20 09/04/20 23:59 23:59 23:59 Intake Total 3201.67 / 3201.67 Output Total 400 / 900 1000 / 1000 Balance 2801.67 / 2301.67 -1000 / -1000 General: Alert, Oriented x3, Cooperative, No apparent distress, Well developed, Well nourished HEENT: Atraumatic, PERRLA, EOMI, Normocephalic Neck: Supple, No JVD Lungs: Normal air movement Cardiovascular: Regular rate Abdomen: Soft, Non Tender, Non-Distended, - - incision c/d/i, fundus firm Extremities: No edema, No Calf Tenderness Neurological: Cranial nerves II-XII grossly intact, Neuro grossly intact Psych/Mental Status: Normal Affect, Appropriate Current Medications Acetaminophen (Acetaminophen 500 Mg Tablet) 1,000 mg PO Q6 [facility] Last Admin: 09/04/20 06:38 Dose: 1,000 mg Documented by: Hydrocodone Bitart/Acetaminophen (Hydrocodone Bitartrate/Apap 5/325 Tablet) 1 tablet PO Q4H PRN PRN PRN Reason: Pain Score 4-10 Bisacodyl (Bisacodyl 10 Mg Suppository) 10 mg RECTAL UD PRN PRN Reason: If no BM Enoxaparin Sodium (Enoxaparin 40 Mg/0.4 Ml Syringe) 40 mg SC BID@0100,1300 [facility] Last Admin: 09/04/20 03:29 Dose: 40 mg Documented by: Hydrocortisone (Hydrocortisone 2.5% Crm) 1 applic TOPICAL TID PRN PRN; Protocol PRN Reason: Discomfort Methylergonovine Maleate (Methylergonovine 0.2 Mg/Ml Ampul) 0.2 mg IM X1 PRN PRN Reason: Uterine Atony Naloxone HCl (Naloxone 0.4 Mg/Ml Syringe) 0.02 mg IV Q1M PRN PRN Reason: RR <10 and pt unresponsive Naproxen (Naproxen 250 Mg Tablet) 500 mg PO Q8H [facility] Last Admin: 09/04/20 05:36 Dose: 500 mg Documented by: Ondansetron HCl (Ondansetron 4 Mg/2 Ml Vial) 4 mg IV Q4H PRN PRN PRN Reason: Nausea Multivit/Folic Acid/Iron ( Vits Tablet) 1 tablet PO DAILY@1200 [facility] Last Admin: 09/03/20 12:34 Dose: 1 tablet Documented by: Prochlorperazine Edisylate (Prochlorperazine 10 Mg/2 Ml Vial) 10 mg IV Q6H PRN PRN PRN Reason: NAUSEA Senna/Docusate Sodium (Senna/Docusate Sodium 1 Tablet) 0 tablet PO DAILY [facility] Last Admin: 09/04/20 09:05 Dose: 2 tablet Documented by: Simethicone (Simethicone 80 Mg Tablet) 80 mg PO PCHS PRN PRN Reason: Indigestion/stomach pain Sodium Chloride (0.9% Saline Lock 10 Ml Syringe) 5 - 15 ml IV UD PRN PRN Reason: SALINE FLUSH Last Admin: 09/03/20 05:47 Dose: 10 ml Documented by: Medical Necessity - Tobacco Use Smoking Status: Never smoker Assessment/Plan All Active Problems (Last Updated 09/02/20 @ 15:54 by Lenore Hill) Sterilization (Acute ~09/02/20) History of tetanus, diphtheria, and acellular pertussis booster vaccination (Tdap) (Acute) contraception (Acute) 34 weeks gestation of (Resolved) H/O section (Resolved) Obesity affecting (Resolved) (Resolved) Supervision of high risk , antepartum (Resolved) Abnormal glucose affecting (Resolved) Arrest of descent, delivered, current hospitalization (Resolved) BMI 40.0-44.9, adult (Resolved) Cephalopelvic disproportion (Resolved) Failed vacuum extraction delivery (Resolved) GBS (group B streptococcus) UTI complicating (Resolved) Obesity affecting (Resolved) SROM (spontaneous rupture of membranes) (Resolved) Supervision of high risk in first trimester (Resolved) s/p LTCS PPD # 2 1. routine post care 2. breast feeding- support given 3. rh positive 4. rubella immune
== END 2020-09-04 11:55 | disposition home or self-care (01) | DRG 539 ==
PROVIDERS: Admitting Provider Obstetrics & Gynecology; PCP Nurse Practitioner Family; Referring Provider Obstetrics & Gynecology; Visit Provider Obstetrics & Gynecology
PROC: 10D00Z1 Extraction of Products of Conception, Low, Open Approach (ICD-10-PCS; CPT 59514; principal; 2020-09-02 11:45)
DX: O34.219 Maternal care for unspecified type scar from previous cesarean delivery (principal); Z37.0 Single live birth; O99.214 Obesity complicating childbirth; E66.9 Obesity, unspecified; O42.92 Full-term premature rupture of membranes, unspecified as to length of time between rupture and onset of labor; Z3A.37 37 weeks gestation of pregnancy; Z30.2 Encounter for sterilization
CPT/HCPCS: 85025; 85027; 86850; 86900; 86901; 88302; 99218; J7120; A4216; G0378; J2405